=== PATIENT | female | born 1970 | race Caucasian/White ===

== ENCOUNTER 2018-07-22 13:05 | Emergency (ER) | payer OTHER ==
--- NOTE | 2018-07-22 14:24 | Emergency Department Report ---
Chief Complaint: Urogenital-Female Stated Complaint: POSS UTI Time Seen by Provider: 07/22/18 14:23 - HPI History of Present Illness: co dysuria felt pop with period just finished menses still reg ? dc treated with azo and monistat at home pmh none rx none cig mse completed MSE screening note: Focused history and physical exam performed. Due to findings the following was ordered: ED Disposition for MSE Condition: Stable
[2018-07-22 14:25] VITALS: BP 123/84
[2018-07-22] MEDS ORDERED: DIFLUCAN PO ONE (17:14)
[2018-07-22] MEDS ORDERED: FLAGYL PO ONE (17:14)
--- NOTE | 2018-07-22 17:19 | Emergency Department Report ---
ED Female HPI - General Chief complaint: Urogenital-Female Stated complaint: POSS UTI Time Seen by Provider: 07/22/18 14:23 Source: patient Mode of arrival: Ambulatory Limitations: No Limitations - History of Present Illness Initial comments: This is a 48-year-old female presents to ED complaining of burning with urination for the past week. Patient states that she thought it would get better she has been taking Azo pills she has no relief with the Azo pills. She also states prior to starting her cycle she thinks she may have a vaginal discharge. Patient's last period was 07/16/2018 and currently on her cycle. She denies fevers chills/nausea vomiting and abdominal pain. MD Complaint: dysuria Are you Now?: No - Related Data Previous Rx's Medication Instructions Recorded Last Taken Type Ibuprofen [Motrin] 800 mg PO Q8HR #20 tablet 07/22/18 Unknown Rx Phenazopyridine [Pyridium] 200 mg PO BID #10 tab 07/22/18 Unknown Rx Sulfamethoxazole/Trimethoprim 1 each PO BID #14 tablet 07/22/18 Unknown Rx [Bactrim DS TAB] traMADol [Ultram 50 MG tab] 50 mg PO Q6HR PRN #15 tablet 07/22/18 Unknown Rx Allergies Allergy/AdvReac Type Severity Reaction Status Date / Time Penicillins AdvReac Hives Verified 07/22/18 13:06 ED Review of Systems ROS: Stated complaint: POSS UTI Other details as noted in HPI Comment: All other systems reviewed and negative ED Past Medical Hx - Past Medical History Previous Medical History?: Yes Hx Liver Disease: Yes (Hep C) - Surgical History Past Surgical History?: No - Social History Smoking Status: Current Every Day Smoker Substance Use Type: None - Medications Home Medications: Home Medications Medication Instructions Recorded Confirmed Last Taken Type Ibuprofen [Motrin] 800 mg PO Q8HR #20 tablet 07/22/18 Unknown Rx Phenazopyridine [Pyridium] 200 mg PO BID #10 tab 07/22/18 Unknown Rx Sulfamethoxazole/Trimethoprim 1 each PO BID #14 tablet 07/22/18 Unknown Rx [Bactrim DS TAB] traMADol [Ultram 50 MG tab] 50 mg PO Q6HR PRN #15 tablet 07/22/18 Unknown Rx ED Physical Exam - General Limitations: No Limitations General appearance: alert, in no apparent distress - Head Head exam: Present: atraumatic, normocephalic - Eye Eye exam: Present: normal appearance - ENT ENT exam: Present: mucous membranes moist - Neck Neck exam: Present: normal inspection - Respiratory Respiratory exam: Present: normal lung sounds bilaterally. Absent: respiratory distress - Cardiovascular Cardiovascular Exam: Present: regular rate, normal rhythm. Absent: systolic murmur, diastolic murmur, rubs, gallop - GI/Abdominal GI/Abdominal exam: Present: soft, normal bowel sounds - Extremities Exam Extremities exam: Present: normal inspection - Back Exam Back exam: Present: normal inspection - Neurological Exam Neurological exam: Present: alert, oriented X3 - Psychiatric Psychiatric exam: Present: normal affect, normal mood - Skin Skin exam: Present: warm, dry, intact, normal color. Absent: rash ED Course Vital Signs 07/22/18 14:23 Temperature 97.8 F Pulse Rate 78 Respiratory 18 Rate Blood Pressure 123/84 [Right] O2 Sat by Pulse 99 Oximetry ED Medical Decision Making - Medical Decision Making 48-year-old female presents with dysuria/UTI Urinalysis shows bacteria, trace leuk calcium oxalate. Patient treated for vaginitis in the ED with Diflucan and Flagyl. Patient was sent home on Bactrim DM. She was advised to follow up with her primary care physician within 5 days. Vital signs are normal she is in no acute distress Critical care attestation.: If time is entered above; I have spent that time in minutes in the direct care of this critically ill patient, excluding procedure time. ED Disposition Clinical Impression: Dysuria, UTI (urinary tract infection) Disposition: DC-01 TO HOME OR SELFCARE Is pt being admited?: No Does the pt Need Aspirin: No Condition: Stable Instructions: Kidney Stones (ED), Urinary Tract Infection in Women (ED), Vaginitis (ED), Dysuria (ED) Additional Instructions: Make sure to follow up with the primary care physician as discussed. Take all your medications as you've been prescribed. If you have any worsening symptoms or develop new symptoms please return to ED immediately. Prescriptions: Sulfamethoxazole/Trimethoprim [Bactrim DS TAB] 1 each PO BID #14 tablet Ibuprofen [Motrin] 800 mg PO Q8HR #20 tablet Phenazopyridine [Pyridium] 200 mg PO BID #10 tab traMADol [Ultram 50 MG tab] 50 mg PO Q6HR PRN #15 tablet PRN Reason: Pain Referrals: DORIAN KAHN MD [Primary Care Provider] - 3-5 Days Forms: Work/School Release Form(ED) Time of Disposition: 17:49
[2018-07-22 17:29] LABS: Bacteria,Urine 1+ /HPF (Negative); Bilirubin,Urine NEG (Negative); Blood,Urine MOD (Negative); Calcium Oxalate Crystals,Urine 3+; Color,Urine Amber (Yellow); Mucus,Urine 3+ /HPF
[2018-07-22 17:30] LABS: RBC,Urine > 182.0 /HPF (0.0-6.0)
[2018-07-22 17:31] LABS: HCG Qualitative,Urine Negative (Negative)
[2018-07-22] MEDS ORDERED: BACTRIM DS PO ONE (17:32)
[2018-07-22] MEDS ORDERED: BACTRIM DS PO SCH (22:00)
== END 2018-07-22 18:10 | disposition home or self-care (01) ==
LOC: ED 13:05
DX: N39.0 Urinary tract infection, site not specified (principal); F17.200 Nicotine dependence, unspecified, uncomplicated; Z86.19 Personal history of other infectious and parasitic diseases; Z88.0 Allergy status to penicillin
CPT/HCPCS: 81001; 81025